=== PATIENT | female | born 1965 | race Caucasian/White ===

== ENCOUNTER → 2022-09-01 | Outpatient (CLI) | LOC: M SOG 08:00 | PROVIDERS: ATTEND Orthopaedic Surgery | DX: M43.12 Spondylolisthesis, cervical region (principal); M50.30 Other cervical disc degeneration, unspecified cervical region ==

== ENCOUNTER → 2022-10-06 | Outpatient (CLI) | payer BC, MEDICAID | LOC: M RAD 08:59 | PROVIDERS: ATTEND Orthopaedic Surgery | DX: M54.2 Cervicalgia (principal) ==